=== PATIENT | male | born 1935 | race Caucasian/White ===

== ENCOUNTER 2019-07-03 23:46 | Emergency (ER) | payer MEDICARE, BC ==
[2019-07-03] MEDS ORDERED: ONDANSETRON INJ 4 MG/2 ML VIAL IV ONE (23:51)
[2019-07-03] MEDS ORDERED: SODIUM CHLORIDE 0.9% (FLUSH) 10 ML SYG IV PRN (23:51)
[2019-07-03] MEDS ORDERED: SODIUM CHLORIDE 0.9% 1000ML 1,000 ML IVS ONE (23:56)
--- NOTE | 2019-07-04 00:29 | ED.PDOC ---
History of Present Illness - General Chief Complaint: GI Problem Stated Complaint: diarrhea Time Seen by Provider: 07/03/19 23:50 Information Source: patient, RN notes reviewed, Vital Signs reviewed Exam Limitations: no limitations - History of Present Illness Initial Comments: This is an 83-year-old male with reported history of "gallbladder problems" presenting to the emergency department with watery diarrhea has been ongoing for 2 days. Patient states the symptoms began after brought home a take away male from a local restaurant. Both he and his developed diarrhea within 12 hours of eating this meal. 's symptoms are completely resolved, his diarrhea has persisted. He denies any blood in stool, no fever, no abdominal pain. No recent antibiotic use, no recent travel. No cough/shortness of breath. Review of Systems - Review of Systems Constitutional: Denies: chills, fever EENTM: Denies: ear pain, nose pain, nose congestion, throat pain Respiratory: Denies: orthopnea, short of breath Cardiology: Denies: chest pain, edema, syncope Gastrointestinal/Abdominal: States: diarrhea. Denies: abdominal pain, nausea, vomiting Genitourinary: Denies: dysuria, hematuria Musculoskeletal: Denies: back pain, joint pain, muscle stiffness, neck pain Skin: Denies: dryness, lumps, rash Neurological: Denies: headache, numbness, tingling Endocrine: States: no symptoms reported Hematologic/Lymphatic: States: no symptoms reported Past Medical History (General) - Patient Medical History Hx Seizures: No Hx Stroke: No Hx Dementia: No Hx Asthma: No Hx of COPD: No Hx Cardiac Disorders: No Hx Congestive Heart Failure: No Hx Pacemaker: No Hx Hypertension: No Hx Thyroid Disease: No Hx Diabetes: No Hx Gastroesophageal Reflux: No Hx Renal Disease: No Hx Cancer: No Hx of HIV: No Hx Hepatitis C: No Hx MRSA: No - Vaccination History Hx Tetanus, Diphtheria Vaccination: Yes - unsure Hx Influenza Vaccination: Yes Hx Pneumococcal Vaccination: Yes - Social History Hx Tobacco Use: No Hx Chewing Tobacco Use: No Hx Alcohol Use: No Hx Substance Use: No Hx Substance Use Treatment: No Hx Depression: No Hx Physical Abuse: No Hx Emotional Abuse: No Hx Suspected Abuse: No - Female History Patient : No Family Medical History - Family History Father Living Status: Hx Cardiac Disease: Yes Physical Exam - Physical Exam General Appearance: Alert, Comfortable Eyes, Ears, Nose, Throat Exam: PERRL/EOMI, normal ENT inspection, TMs normal Neck: non-tender, full range of motion, normal inspection Respiratory: chest non-tender, lungs clear, normal breath sounds, no respiratory distress Cardiovascular/Chest: normal peripheral pulses, regular rate, rhythm, no edema, no gallop, no JVD, no murmur Gastrointestinal/Abdominal: normal bowel sounds, non tender, soft, other - Negative Arreola sign Back Exam: normal inspection, no CVA tenderness, no vertebral tenderness Extremity: normal range of motion, normal inspection Neurologic: no motor/sensory deficits, alert, normal mood/affect, oriented x 3 Skin Exam: normal color, warm/dry Special Observations: No evidence of discomfort, Smiling Progress - Progress Progress: 07/04/19 01:21 Rechecked. Discussed lab findings. Discussed strong suspicion that this is likely an infectious enteritis, strongly suspected to be viral. Abdomen remains benign. No leukocytosis, no fever, no blood in stool, very low suspicion for bacterial enteritis. Discussed plan to defer antibiotics and treat symptomatically. Patient is comfortable with plan for discharge home. Recommended follow-up with PCP in 3 to 5 days for recheck. Strict warnings given to return the emergency room for abdominal pain, fever, blood in stool, intractable vomiting, changes in mental status, or any other concerns. DDX: Infectious gastroenteritis, cholelithiasis/cholecystitis, dehydration, UTI MDM: Patient presenting with watery diarrhea onset 2 days ago, onset 12 to 24 hours after eating a take away chicken meal. Patient states his had mild nausea and a couple episodes of vomiting that only lasted a couple hours and have since resolved. He has had persistent diarrhea since that time. No fever, no blood in stool, no abdominal pain or abdominal tenderness on exam. Patient thinks this is likely related to his gallbladder, although absence of pain and benign exam argue against gallbladder in my opinion I suspect this is likely a viral gastroenteritis. His labs today are reassuring, vital signs are normal. Will treat symptomatically. Recommended follow-up with PCP in 3 to 5 days for recheck. Strict warnings given to return the emergency room for abdominal pain, fever, blood in stool, changes in mental status, or any other concerns. Edmundo Cardoza DO [facility] #[id number] - Results/Orders Results/Orders: Laboratory Tests 07/04/19 07/04/19 07/04/19 00:02 00:02 01:00 WBC 6.2 RBC 4.30 L Hgb 15.3 Hct 44.8 MCV 104.3 H MCH 35.5 H MCHC 34.0 RDW 13.3 Plt Count 160 MPV 6.7 L Absolute Neuts (auto) 4.20 Absolute Lymphs (auto) 1.10 Absolute Monos (auto) 0.80 Absolute Eos (auto) 0.10 Absolute Basos (auto) 0.00 Neutrophils % 67.7 Lymphocytes % 18.5 L Monocytes % 12.3 H Eosinophils % 1.2 Basophils % 0.3 Sodium 135 Potassium 3.6 Chloride 102 Carbon Dioxide 25 Anion Gap 11.6 L BUN 17 Creatinine 1.04 BUN/Creatinine Ratio 16.3 Random Glucose 111 H Serum Osmolality 272.3 L Calcium 8.8 Total Bilirubin 0.9 AST 31 ALT 27 Alkaline Phosphatase 60 Serum Total Protein 7.3 Albumin 4.2 Globulin 3.1 Albumin/Globulin Ratio 1.4 Lipase 44 Urine Color Yellow Urine Appearance Clear Urine pH 6.0 Ur Specific [place] 1.010 Urine Protein Negative Urine Glucose (UA) Negative Urine Ketones Negative Urine Blood Negative Urine Nitrite Negative Urine Bilirubin Negative Urine Urobilinogen 0.2 Ur Leukocyte Esterase Negative Urine RBC 0 Urine WBC 0 Ur Epithelial Cells 0 Urine Bacteria 0 Departure - Departure Clinical Impression: Diarrhea Qualifiers: Diarrhea type: presumed infectious Qualified Code(s): R19.7 - Diarrhea, unspecified Disposition: Discharge to Home or Self Care Condition: Good Departure Forms: ED Discharge - Pt. Copy, Patient Portal Self Enrollment Instructions: DI for Diarrhea and Traveler's Diarrhea -- Adult Diet: resume usual diet Activity: increase activity as tolerated Referrals: CHACHO HOOD MD [Primary Care Provider] - 1-5 Days Prescriptions: Diphenoxylate/Atropine [Lomotil Tab] 2.5 mg PO Q6H PRN #20 tab PRN Reason: Diarrhea Ondansetron Odt [Zofran ODT] 8 mg PO Q8H PRN #12 tab PRN Reason: Nausea Home Medications: Ambulatory Orders Diphenoxylate/Atropine [Lomotil Tab] 2.5 mg PO Q6H PRN #20 tab 07/04/19 Ondansetron Odt [Zofran ODT] 8 mg PO Q8H PRN #12 tab 07/04/19 Additional Instructions: Drink plenty of fluids. Return to the emergency room for abdominal pain, blood in stool, fever, intractable vomiting, or any other concerns. Follow-up with your regular doctor in 3 to 4 days for recheck.
[2019-07-04] MEDS ORDERED: ONDANSETRON ODT 8 MG TAB SL ONE (01:20)
[2019-07-04 01:27] VITALS: BP 141/74; TEMP 97.6; O2SAT 95
== END 2019-07-04 01:27 | disposition home or self-care (01) ==
LOC: ER 23:46
DX: R19.7 Diarrhea, unspecified (principal)
CPT/HCPCS: 80053; 81001; 83690; 85025; 93005; J2405; J7030